=== PATIENT | female | born 1995 | race Caucasian/White ===

== ENCOUNTER → 2018-03-13 16:51 | Outpatient (CLI) | payer OTHER, SELFPAY ==
[2018-03-13 17:38] LABS: Appearance Urine UA CLEAR; Bilirubin Urine UA NEGATIVE (NEGATIVE); Color Urine UA YELLOW; Glucose Urine UA NEGATIVE (Normal); Ketones Urine UA NEGATIVE (NEGATIVE); Leukocyte Esterase Urine UA NEGATIVE (NEGATIVE); Nitrite Urine UA NEGATIVE (Negative); Occult Blood Urine UA TRACE-INTACT (Negative); Protein Urine UA NEGATIVE (Negative)
[2018-03-13 17:45] LABS: Bacteria Urine Few (2-10); RBC Urine 5-10/HPF (0-5/HPF); Squamous Epithelial Cell Urine 1-5 /HPF; WBC Urine 5-10/HPF (0-5/HPF)
[2018-03-13 17:46] LABS: Culture Indicated Urine Specimen Cultured
== END ==
PROVIDERS: PCP Family Medicine; Visit Provider Family Medicine
DX: R30.0 Dysuria (principal); R35.0 Frequency of micturition
CPT/HCPCS: 81001; 87077; 87086; 87186

== ENCOUNTER → 2018-06-22 13:24 | Outpatient (REF) | payer OTHER, SELFPAY ==
[2018-06-22 15:17] LABS: Urine N gonorrhoeae NOT DETECTED
[2018-06-22 15:39] LABS: Urine Chlamydia NOT DETECTED
== END ==
LOC: LAB 13:24
PROVIDERS: PCP Family Medicine; Visit Provider Family Medicine
DX: N39.0 Urinary tract infection, site not specified (principal)
CPT/HCPCS: 87086; 87491; 87591

== ENCOUNTER → 2022-01-17 17:04 | Outpatient (CLI) | payer OTHER, SELFPAY ==
[2022-01-17 18:38] LABS: Influenza A - CEPHEID Flu A NEGATIVE (NEGATIVE); Influenza B - CEPHEID Flu B NEGATIVE (NEGATIVE)
== END ==
PROVIDERS: PCP Family Medicine; Visit Provider Student in an Organized Health Care Education/Training Program
DX: H92.09 Otalgia, unspecified ear (principal); R09.81 Nasal congestion
CPT/HCPCS: 87502

== ENCOUNTER → 2022-02-16 18:31 | Outpatient (CLI) | payer OTHER, SELFPAY ==
[2022-02-17 10:24] LABS: Influenza A - CEPHEID Flu A NEGATIVE (NEGATIVE); Influenza B - CEPHEID Flu B NEGATIVE (NEGATIVE); Respiratory Syncytial Virus Negative (Negative)
[2022-02-17 10:32] LABS: COVID-19 CEPHEID 4-PLEX PCR Negative (Negative)
== END ==
PROVIDERS: PCP Family Medicine; Visit Provider Registered Nurse
DX: R50.9 Fever, unspecified (principal)
CPT/HCPCS: 0241U

== ENCOUNTER → 2023-01-26 08:23 | Outpatient (CLI) | payer OTHER, SELFPAY | PROVIDERS: PCP Family Medicine; Visit Provider Nurse Practitioner Family | DX: J02.9 Acute pharyngitis, unspecified (principal) | CPT/HCPCS: 87070 ==

== ENCOUNTER → 2023-08-10 18:38 | Outpatient (CLI) | payer OTHER, SELFPAY ==
--- NOTE | 2023-08-10 18:41 | DI.RAD.S_ITS ---
PROCEDURE: XR WRIST LT MIN 3V INDICATIONS: Left wrist and elbow pain, FOOSH injury TECHNIQUE: 4 views of the wrist were acquired. COMPARISON: None. FINDINGS: Bones: No fractures or dislocations. No suspicious bony lesions. Soft tissues: No suspicious soft tissue calcifications. IMPRESSION: No acute left wrist fracture or dislocation. Dictated by: Kenny Rosas M.D. on 08/10/2023 at 19:03 Approved by: Kenny Rosas M.D. on 08/10/2023 at 19:04
--- NOTE | 2023-08-10 18:41 | DI.RAD.S_ITS ---
PROCEDURE: XR ELBOW LT MIN 3V INDICATIONS: Left wrist and elbow pain, FOOSH injury TECHNIQUE: 3 views of the elbow were acquired. COMPARISON: None. FINDINGS: Bones: No fractures or dislocations. No suspicious bony lesions. Soft tissues: No elbow joint effusion. No suspicious soft tissue calcifications. IMPRESSION: No acute bony abnormality or significant joint effusion. Dictated by: Matt Robeldo M.D. on 08/11/2023 at 14:24 Approved by: Matt Robledo M.D. on 08/11/2023 at 14:24
== END ==
PROVIDERS: PCP Family Medicine; Referring Provider Physician Assistant Surgical; Visit Provider Physician Assistant Surgical
DX: S69.92XA Unspecified injury of left wrist, hand and finger(s), initial encounter (principal); M79.602 Pain in left arm; W19.XXXA Unspecified fall, initial encounter
CPT/HCPCS: 73080; 73110